=== PATIENT | female | born 1960 | race American Indian/Alaskan Native ===

== ENCOUNTER 2016-09-22 06:23 | Observation (INO) | payer OTHER ==
[2016-09-20 12:47] LABS: Basophils % (Auto) 0.7 % (0.0-1.8); Eosinophils % (Auto) 4.5 % (0.0-4.3); Hematocrit 41.4 % (30.3-42.9); Hemoglobin 13.6 gm/dl (10.1-14.3); Mean Corpuscular HGB Conc 33 % (30-34); Mean Corpuscular Hemoglobin 31 pg (28-32); Mean Corpuscular Volume 93 fl (79-97); Platelet Count 220 K/mm3 (140-440); Red Blood Count 4.46 M/mm3 (3.65-5.03); White Blood Count 5.3 K/mm3 (4.5-11.0)
--- NOTE | 2016-09-20 12:53 | Anesthesia Consultation ---
Anesthesia Consult and Med Hx Date of service: 09/20/16 - Airway Anesthetic Teeth Evaluation: Good ROM Head & Neck: Adequate Mental/Hyoid Distance: Adequate Mallampati Class: Class I Intubation Access Assessment: Good - Pulmonary Exam CTA: Yes - Cardiac Exam Cardiac Exam: RRR - Pre-Operative Health Status ASA Pre-Surgery Classification: ASA2 Proposed Anesthetic Plan: General Nerve Block: TAP block - Gastrointestinal Hx Gastroesophageal Reflux Disease: Yes (well controlled ) - Other Systems Hx Alcohol Use: Yes (occas) Hx Cancer: No
--- NOTE | 2016-09-21 16:26 | History and Physical Report ---
History of Present Illness Date of examination: 09/20/16 Chief complaint: Postmenopausal bleeding History of present illness: This is a 56 year old female who presented to the office for her annual exam complaining of pelvic pain, vaginal bleeding after no periof for ~4years. Her pap results revealed endometrial cells. Her evaluation revealed endometrial polyps and fibroids, she desired conservative surgical therapy and underwent an endometrial ablation that was unremarkable. She experienced persistent irregular bleeding with hormone levels consistent with menopause. She now desires to proceed with hysterectomy with removal of both fallopian tubes and ovaries. Past History : 4 Term Births: 1 Premature Births: 2 Living Children: 2 Spont. Ab: 1 # 1 Comments: x3, one demise [employer] History Operations: Tubal Ligation inguinal hernia repair(R) Colon polypectmy Hysteroscopy w/ Endometrial Ablation (04/18/2016) Hysteroscopic polypectomy (04/18/2016) Hysteroscopic Myomectomy (04/18/2016) Abnormal PAP: positive Relevant Family Hx: Family History Breast Cancer Maternal aunt Family History of Ovarian Cancer PGM No Family History of Colon Cancer Brother Schwanoma Niece Hodgkins lymphoma Infection History HIV Risk Eval: no Hx of STD: None Active Medications (reviewed today): OXYCODONE-ACETAMINOPHEN 5-325 MG TABS (OXYCODONE-ACETAMINOPHEN) 1-2po q6h TRANEXAMIC ACID 650 MG TABS (TRANEXAMIC ACID) 1300 mg(2 tabs) 3 times daily ( 3900 mg daily) for up to 5 days during monthly menstruation XYZAL 5 MG ORAL TABS (LEVOCETIRIZINE DIHYDROCHLORIDE) LINZESS CAPS (LINACLOTIDE CAPS) Current Allergies (reviewed today): No known allergies Past Medical History: Reviewed history from 05/18/2016 and no changes required: seasonal allergies colon polyp benign BRCA2 Variant of Uncertain Significance Detected [facility] Past Surgical History: Reviewed history from 04/18/2016 and no changes required: Tubal Ligation inguinal hernia repair(R) Colon polypectmy Hysteroscopy w/ Endometrial Ablation (04/18/2016) Hysteroscopic polypectomy (04/18/2016) Hysteroscopic Myomectomy (04/18/2016) Family History Summary: Reviewed history Last on 04/13/2016 and no changes required:09/21/2016 Other family member - Has No Family History of Biliary Tract Cancer - Entered On : 02/22/2016 Other family member - Has No Family History of Colon Cancer - Entered On: 2015 Other family member - Has No Family History of DVT/PE on OCP - Entered On: 2015 Other family member - Has No Family History of Kidney/Urinary Tract Cancer - Entered On: 02/22/2016 Other family member - Has No Family History of Pancreatic Cancer - Entered On: Other family member - Has No Family History of Stomach Cancer - Entered On: 02/21 Other family member - Has No Family History of Small Bowel Cancer - Entered On: 02/22/2016 Other family member - Has No Family History of Uterine Cancer - Entered On: 02/21 General Comments - FH: Family History Breast Cancer Maternal aunt Family History of Ovarian Cancer PGM No Family History of Colon Cancer Brother Jeferson Niece Hodgkins lymphoma Social History: Reviewed history from 02/09/2016 and no changes required: Patient is Smoking History: Patient has never smoked. Risk Factors: Smoked Tobacco Use: Never smoker Alcohol use: yes Previous Tobacco Use: Signed On - 08/02/2016 Smoked Tobacco Use: Never smoker Smokeless Tobacco Use: Never Passive smoke exposure: no Drug use: no HIV high-risk behavior: no Previous Alcohol Use: Signed On - 08/02/2016 Alcohol use: yes Type: occ Drinks per day: <1 Exercise: yes Times per week: 3 Seatbelt use: 100 % Colonoscopy History: Date of Last Colonoscopy: 10/13/2015 Mammogram History: Date of Last Mammogram: 03/27/2016 PAP Smear History: Date of Last PAP Smear: 02/09/2016 Review of Systems General Denies fever, chills, sweats, anorexia, fatigue, weakness, malaise, weight loss and sleep disorder. Denies nausea, vomiting, headache, swelling of legs, abdominal pain, vaginal discharge, vaginal bleeding and contractions. Complains of abnormal vaginal bleeding. Denies vaginal discharge, incontinence, dysuria, hematuria, urinary frequency, amenorrhea, menorrhagia, pelvic pain, genital sores, decreased libido , painful periods, painful sex, urinary urgency, hot flashes, vaginal dryness, vaginal itching and vaginal odor. CV Denies chest pains, palpitations, syncope, dyspnea on exertion, orthopnea, PND and peripheral edema. Resp Denies cough, dyspnea at rest, excessive sputum, hemoptysis, wheezing and pleurisy. GI Denies nausea, vomiting, diarrhea, constipation, change in bowel habits, abdominal pain, melena, hematochezia, jaundice, gas/bloating, indigestion/ heartburn, dysphagia and odynophagia. Endo Denies cold intolerance, heat intolerance, polydipsia, polyphagia, polyuria and unusual weight change. Breast Denies left breast lump, right breast lump, nipple discharge, bloody discharge from nipple, breast pain, abnormal mammogram and breast enlargement. MS Denies back pain, joint pain, joint swelling, muscle cramps, muscle weakness, stiffness, arthritis, sciatica, restless legs, leg pain at night and leg pain with exertion. Derm Denies rash, itching, dryness and suspicious lesions. Neuro Denies paralysis, paresthesias, headache, seizures, tremors, vertigo, transient blindness, frequent falls, frequent headaches and difficulty walking. Psych Denies depression, anxiety, irritability and mood swings. Eyes Denies blurring, diplopia, irritation, discharge, vision loss, eye pain and photophobia. ENT Denies earache, ear discharge, tinnitus, decreased hearing, nasal congestion, nosebleeds, sore throat and hoarseness. Allergy Denies urticaria, allergic rash, hay fever and recurrent infections. Heme Denies abnormal bruising, bleeding and enlarged lymph nodes. Physical Exam Appearance: well developed, well nourished, no acute distress Other Exams Lungs: no rales, rhonchi, or wheezes Heart: S1, S2, no murmur, rub, or gallop Abdomen: soft, non-tender, no masses, Skin: no ulcers, xanthomas Lymph: no cervical, axillary, or inguinal adenopathy Extremities: normal alignment, no joint enlargement, crepitus, masses or tenderness; normal tone and strength Genitourinary Exam Vulva: normal, no lesions or discharge Urethral meatus: normal size and location, no lesions or discharge Urethra: no discharge Bladder: no cystocele Vagina: normal appearance, no discharge, lesions. No evidence of cystocele or rectocele. Cervix: normal appearance, no lesions, no discharge Uterus: normal position, midline, mobile Adnexa: no masses or tenderness Impression & Recommendations: Problem # 1: Other specified irregular menstruation (DZC70-I89.5) Consent reviewed and signed . Possible laparoscopy or laparotomy explained to patient. The risks and alternatives for this surgery were reviewed with the patient. She was informed of possible bleeding, infection, injury to bowel, bladder, ureters or other adjacent organs. She was informed she will nopt be able to get once her uterus is removed. The patient was instructed/informed the following: The normal length of hospital stay for this procedure. Nothing to eat or drink after midnight the evening prior to surgery. Clear liquids the day before surgery. Fleets enema the day prior to surgery. Pre-op instruction sheets given. Wound care instructions given. Infection precautions reviewed, patient to call for any signs or symptoms of infection. The usual discomforts associated with this procedure were detailed. Proper use of pain medicines was reviewed. Patient was given ample opportunity to have all her questions answered before signing informed consent. H&P dictated. Medications Added to Medication List This Visit: 1) Oxycodone-acetaminophen 5-325 Mg Tabs (Oxycodone-acetaminophen) .... 1-2po q6h Prescriptions: OXYCODONE-ACETAMINOPHEN 5-325 MG TABS (OXYCODONE-ACETAMINOPHEN) 1-2po q6h #30 x 0 Entered and Authorized by: Thania Gallagher MD Method used: Print then Give to Patient RxID: [id number] Medications and Allergies Allergies Allergy/AdvReac Type Severity Reaction Status Date / Time No Known Allergies Allergy Unverified 04/10/16 10:54 Home Medications Medication Instructions Recorded Confirmed Last Taken Type Cetirizine HCl [ZyrTEC] 10 mg PO PRN PRN 04/10/16 09/15/16 04/11/16 History Ibuprofen [Motrin] 200 mg PO Q6H PRN 04/10/16 09/15/16 2 Weeks Ago History Pantoprazole [Protonix TAB] 20 mg PO QDAY PRN 04/10/16 09/15/16 1 Month Ago History Active Meds: Active Medications Celecoxib (Celebrex) 200 mg PO PREOP NR Stop: 09/22/16 23:59 Famotidine (Pepcid) 20 mg PO PREOP NR Stop: 09/22/16 23:59 Fentanyl (Sublimaze) 100 mcg IV ONCE ONE Stop: 09/22/16 06:01 Gabapentin (Neurontin) 600 mg PO PREOP NR Stop: 09/22/16 23:59 Sodium Chloride (Nacl 0.9% 1000 Ml) 1,000 mls @ 75 mls/hr IV DIRECT AVE Midazolam HCl (Versed) 2 mg IV PREOP NR Stop: 09/22/16 23:59 Exam Vital Signs Temp Pulse Resp BP 98 F 78 14 124/78 09/20/16 12:15 09/20/16 12:15 09/20/16 12:15 09/20/16 12:15 Results - Labs 09/20/16 12:30 Assessment and Plan - Patient Problems (1) Post-menopausal bleeding Status: Acute
[~2016-09-22 06:23] MED LIST: ANCEF/STERILE WATER 2 GM/20 ML 2 GM/20 ML SYRINGE IV NR; NACL 0.9% 1000 ML 1,000 ML IV SCH; NEURONTIN PO NR; PEPCID PO NR; SUBLIMAZE IV ONE; VERSED IV NR
[2016-09-22] MEDS ORDERED: NACL BACTERIOSTATIC INFILTRATI ONE (06:43)
[2016-09-22] MEDS ORDERED: DIPRIVAN 10 MG/ML IV ONE ×2 (07:13→09:39)
[2016-09-22] MEDS ORDERED: SUBLIMAZE ONE (07:13)
[2016-09-22] MEDS ORDERED: XYLOCAINE MPF 2% ONE (07:14)
[2016-09-22] MEDS ORDERED: ZEMURON IV ONE (07:14)
[2016-09-22] MEDS ORDERED: MARCAINE 0.5% 30 ML INFILTRATI ONE (07:19)
[2016-09-22] MEDS ORDERED: NEOSPORIN GU IR ONE ×2 (07:20→09:12)
--- NOTE | 2016-09-22 07:31 | Anesthesia Day of Surgery ---
Anesthesia Day of Surgery - Day of Surgery Patient Examined: Yes Patient H&P Reviewed: Yes Patient is NPO: Yes
[2016-09-22] MEDS ORDERED: MARCAINE-EPI/PF 0.25%-1:200,000 INFILTRATI ONE (07:44)
[2016-09-22] MEDS ORDERED: MARCAINE-EPI 0.25%-1:200,000 INFILTRATI ONE (07:44)
[2016-09-22] MEDS ORDERED: DECADRON ONE ×2 (07:44→08:38)
[2016-09-22] MEDS ORDERED: XYLOCAINE 1% 20 mL ONE (07:44)
[2016-09-22] MEDS ORDERED: CLONIDINE 1,000 MCG/10 ML VIAL EP ONE (07:44)
[2016-09-22 07:50] LABS: BUN/Creatinine Ratio 12.22; Blood Urea Nitrogen 11 mg/dL (7-17); Calcium 9.2 mg/dL (8.4-10.2); Carbon Dioxide 28 mmol/L (22-30); Chloride 97.7 mmol/L (98-107); Glucose 103 mg/dL (65-100); Sodium 137 mmol/L (137-145)
[2016-09-22 08:21] LABS: Anion Gap 17 mmol/L
[2016-09-22 08:23] LABS: Potassium 5.3 mmol/L (3.6-5.0)
[2016-09-22] MEDS ORDERED: CALCIUM CHLORIDE IV ONE ×2 (08:43→09:14)
[2016-09-22] MEDS ORDERED: THROMBIN (BOVINE) TP ONE ×2 (08:44→09:16)
[2016-09-22] MEDS ORDERED: DILAUDID ONE (08:54)
[2016-09-22] MEDS ORDERED: TORADOL ONE (08:55)
[2016-09-22] MEDS ORDERED: NEOSTIGMINE ONE (08:55)
[2016-09-22] MEDS ORDERED: ZOFRAN ONE (08:55)
[2016-09-22] MEDS ORDERED: ROBINUL ONE ×2 (08:55)
[2016-09-22] MEDS ORDERED: NACL 0.9% IR ONE (09:13)
[2016-09-22] MEDS ORDERED: NACL 0.9% 1000 ML 1,000 ML ONE ×4 (09:26→12:51)
[2016-09-22] MEDS ORDERED: NACL 0.9% 100 ML ONE (09:26)
[2016-09-22] MEDS ORDERED: NEO SYNEPHRINE ONE (09:26)
--- NOTE | 2016-09-22 10:50 | Operative Report ---
Operative Report Operative Report: Date of procedure: 09/22/2016 Pre-operative diagnosis: 1. Postmenopausal bleeding unresponsive to conservative surgical and medical therapy 2. Uterine fibroids Post-operative diagnosis: 1. Postmenopausal bleeding unresponsive to conservative surgical and medical therapy 2. Uterine fibroids Procedure name(s): 1. Robotic-assisted total hysterectomy 2. Bilateral oophorectomy 3. Right salpingectomy Surgeon: Thania Gallagher MD Stars Specialist: Eli Peña Anesthesia: General anesthesia Findings: Exam under anesthesia was unremarkable. Uterus was sounded to 10 cm. Grossly normal bilateral ovaries. Absent left fallopian tube. Grossly normal remaining segment of right fallopian tube. No evidence of inflammatory changes. Anesthesiologist: Dr. Amy Florian Complications: None EBL: 50 mL Procedure: After risks, benefits complications, consequences, and alternatives for this procedure were discussed the patient, and she voiced understanding and desired to proceed, she was taken to the OR where general anesthesia was induced. She was placed in the dorsolithotomy position, exam under anesthesia was unremarkable. She was then prepped and draped in usual sterile fashion. Timeout was performed. Stack catheter was introduced into the bladder. A bivalve speculum was introduced into the vagina, and the anterior lip of the cervix was grasped with a single-tooth tenaculum. The uterus was sounded to approximately 10 cm. The cervix was progressively dilated to allow the large the V care uterine manipulator. The tenaculum and speculum were removed and the Vcare manipulator was secured in place. A solution saturated laparotomy sponge was placed in the vagina. Sterile gloves were placed and attention was turned to the abdomen. A 12 mm Optiview trocar with scope and camera attached was placed through a midline vertical incision was approximately 10 cm superior to the elevated fundus of the uterus. The trocar with camera attached was placed under direct visualization. No bowel, bladder, ureteral or major blood vessel injury was noted. The abdomen was insufflated. Patient was placed in steep Trendelenburg position. Additional trocars were placed in the following positions: 8 mm robotic trocars were placed in the bilateral midclavicular lower abdominal region approximately 10 cm lateral and 15 below the midline incision. An additional 5 mm trocar was placed in the right lateral lower abdominal region approximately 2 cm superior to the anterior superior iliac crest. Using the 5 mm operative scope placed through the lateral trocar for visualization, the midline trocar was removed and a 0 Vicryl was placed through the fascia using the Antwon-Romina fascia closure device. The trocar was reintroduced under direct visualization. And the suture was secured in place. Once the trocars were in the proper position the robot was engaged. The instruments were introduced into the 8 mm trochars. Attention was turned to console. The segment of right fallopian tube was released and removed through the 5 mm trocar. The course of the ureters were visualized and the right ovary was elevated and the infundibular pelvic ligament was clamped cauterized and incised. The round ligament on the right was then clamped cauterized and incised. The uterus steel elevated attention was turned to the left adnexa. The utero-ovarian ligament was clamped, cauterized and incised using 30 W of energy. Then the round ligament was clamped, cauterized and incised. The anterior leaf of the broad ligament was elevated with both blunt and sharp dissection the bladder flap was created. Once the bladder appeared to be away from the operative field attention was turned the posterior leaf of the broad ligaments. The ligaments were elevated and dissected away from the uterine vessels. Once the outline of the Vcare uterine manipulator was visualized, the uterine vessels were clamped and cauterized bilaterally. Once blanching of the uterus was noted, and the posterior outline of the Vcare manipulator was visualized, and confirmed, colpotomy was performed down to the cup of the manipulator. This incision was extended in a circumferential manner to 9:00 and 3:00 positions. The uterine vessels were clamped, cauterized and incised. The colpotomy was completed. The uterus with the right ovary were then delivered through the vagina. Attention was turned to the left adnexa. The ovary was elevated and the course of the ureter was confirmed and the infundibular pelvic ligament was clamped cauterized and incised. The left ovary was then removed through the vagina. The pelvis was irrigated with solution warm saline. Once hemostasis was noted the vagina was reapproximated using the V LOC 180 suture. The pelvis was again irrigated with warm normal saline. Once hemostasis was noted, platelet rich plasma was applied for further hemostasis followed by platelet poor plasma to prevent adhesions. The ureters were noted to be peristaltic and away from the operative field. Attention was turned to the left cecal area. No evidence of inflammation was noted. The abdomen and pelvis were again visualized, no bowel, bladder, ureteral or major vascular injury was noted, hemostasis was also noted. The laparoscope was removed and the fascia of the midline incision was ligated. Then the abdomen was desufflated. The trocars were removed. The skin incisions were approximated using 4-0 Vicryl in a subcuticular manner. The incisions were then sealed with Octylseal.The laparotomy sponge was removed from the vagina, and hemostasis was noted. The patient tolerated the procedure well and was taken to recovery room in stable condition. Counts were correct x3. Clear yellow urine was noted draining into the Stack catheter was noted.
[2016-09-22] MEDS ORDERED: DILAUDID IV PRN (11:00)
--- NOTE | 2016-09-22 11:26 | Admit Criteria Form ---
Admission Criteria Documentation: AMBULATORY SURGERY EXCEPTION CRITERIA Ambulatory Surgery Exception Criteria ( Place 'X' for any and all applicable criteria): Surgery or procedure performed on ambulatory basis may require inpatient stay for[A] ANY ONE of the following(1)(2)(3)(4)(5)(6)(7)(8)(9): [X] I. A preoperative situation, condition, or finding that warrants inpatient stay as indicated by ANY ONE of the following: [X] a) Inpatient care needed because of severity of a disease or condition rather than the surgery (eg, severe cardiac or respiratory disease, severe infection) (15) (16 ) (17) (18) [] b) Emergent procedure (eg, angioplasty for acute ischemia)(19) [] c) Complex surgical approach or situation as indicated by ANY ONE of the following(3): [] i) Open approach needed instead of usual endoscopic, transcatheter, or other less invasive procedure [] ii) Difficult approach because of previous operation [] iii) Airway monitoring required after open neck procedures(20)(21) [] iv) Large mass requiring unusually extensive dissection [] v) Additional complicating feature requiring inpatient care (eg, drain management)(22(23): [] d) Major surgery in a pt with high anesthetic risk as indicated by ANY ONE of the following (2)(3)(5)(7)(8): [] i) ASA risk class III or higher (severe systemic disease impairing function) [D] [] ii) Advanced age (eg, older than 85 years)(14)(24) [] iii) Symptomatic heart failure(25) [] iv) Symptomatic asthma or COPD(8)(21) [] v) Morbid obesity with hemodynamic or respiratory problems(20)( 21)(26)(27) [] vi) Obstructive sleep apnea(20)(21) [] vii) Former premature infants who are younger than 60 weeks [] viii) High risk for severe postoperative abnormalities (eg, severe postoperative hypocalcemia after parathyroidectomy for severe hyperparathyroidism)(27)( 28) [] ix) Unstable angina(25) [] e) Drug-related risk requiring inpatient stay as indicated by ANY ONE of the following(5)(10)(14)(32)(33) [] i) Procedure requires discontinuing drugs or other therapy (eg , antiarrhythmic medication, antiseizure medication), which necessitates inpatient observation or treatment.(18)(31) [] ii) Major surgery and high risk drug use as indicated by ANY ONE of the following: [] 1) Active abuse of cocaine or similar drug [] 2) Monoamine oxidase inhibitor use [] 3) Other drug identified as posing risk [] f) Inadequate outpatient care situation as indicated by ANY ONE of the following(5)(10)(14)(32)(33) [] i) Patient lives remote from medical facility and procedure has urgent complication potential, and temporary nearby residence cannot be arranged [] ii) Patient will have postprocedure incapacitation and inadequate assistance at home, or alternative level of care cannot be arranged. [] iii) Patient will have long general anesthesia or procedure side effect resolution time, and competent person to stay with patient on first postoperative night at home or alternative level of care cannot be arranged. []iv) Other inadequate outpatient situation that cannot be handled by other means [] II. A perioperative event, condition, or finding that warrants inpatient stay as indicated by ANY ONE of the following (1)(2)(3): [] a) Inadequate physiologic recovery: cardiovascular, respiratory, or hemodynamic status not normal or near preoperative baseline(18) [] b) Hemodynamic instability [] c) Patient not alert with near normal or baseline mental status [] d) Temperature not normal or as expected and not appropriate for outpatient treatment of condition [] e) Ambulatory or appropriate activity level status not yet achieved post procedure [E](34)(35)(36) [] f) Operative site not appropriate (eg, unexpected or excessive drainage or bleeding) [] g) Postoperative effects not resolved or adequately managed (eg, significant pain or vomiting not appropriate for outpatient or next level of care)(10)(12) [] h) Complicating features requiring inpatient care as indicated by ANY ONE of the following(37): [] i) Severe complications of procedure (eg, bowel injury, airway compromise, vascular injury,severe hemorrhage) [] ii) Extensive (eg, dissection far beyond usual scope of procedure ) or prolonged (eg, 120 minutes beyond usual) surgery needed requiring inpatient postoperative care [] iii) Conversion to an open or complex procedure that requires inpatient care (eg, open vs laparoscopic cholecystectomy, abdominal vs vaginal hysterectomy)(38) [] iv) Comorbid condition or test result identified during or post procedure that requires inpatient care (7) [] v) Malignant hyperthermia(30) [] vi) Other complicating feature requiring inpatient care(22)(23) Inpatient stay may be needed until ALL of the following are present (1)(2)(3)(4) (5)(6)(10)(14)(33)(40): []a) Physiologic recovery: cardiovascular, respiratory, and hemodynamic status normal or near preoperative baseline []b) Hemodynamic stability []c) Patient alert, with near normal or baseline mental status []d) Temperature appropriate: patient afebrile or temperature appropriate for outpt treatment of condition []e) Activity level appropriate: ambulatory or appropriate activity level post procedure []f) Operative site appropriate as indicated by ALL of the following: []i) Site dry or with expected drainage []ii) Any blood noted is as expected for procedure. []g) Postoperative effects resolved or managed as indicated by ALL of the following: []i) Pain management appropriate for outpatient (or next level of) care(10) []ii) Minimal nausea and vomiting: if present, successfully treated with oral medication(12) []iii) Headache, dizziness, or drowsiness (if present) are mild. []h) Voiding status acceptable as indicated by ANY ONE of the following: []i) Voiding spontaneously []ii) No voiding but instructions given for follow-up in 6 to 8 hours []iii) Urinary catheter in place, and instructions given for follow-up []i) Complicating features requiring inpatient care manageable at a lower level of care(37) []j) Comorbid conditions manageable at a lower level of care(37) The original [employer] content created by [employer] has been revised. The portions of the content which have been revised are identified through the use of italic text or in bold, and [employer] has neither reviewed nor approved the modified material. All other unmodified content is copyright [employer]. Please see references footnoted in the original [employer] edition 2016 Admission Criteria Met: Yes
[2016-09-22] MEDS ORDERED: MORPHINE IV PRN ×2 (14:11)
[2016-09-22] MEDS ORDERED: REGLAN PO PRN (14:11)
[2016-09-22] MEDS ORDERED: NARCAN 0.4 MG/1 ML IV PRN (14:11)
[2016-09-22] MEDS ORDERED: TYLENOL PR PRN (14:11)
[2016-09-22] MEDS ORDERED: TYLENOL PO PRN (14:11)
[2016-09-22] MEDS ORDERED: ZOFRAN IV PRN (14:11)
[2016-09-22] MEDS ORDERED: ZOFRAN PO PRN (14:11)
[2016-09-22] MEDS ORDERED: REGLAN IV PRN (14:11)
[2016-09-22] MEDS ORDERED: LACTATED RINGERS 1,000 ML IV SCH (15:00)
[2016-09-22] MEDS: ANCEF/NS 1 GM/50 ML 1 GM/50 ML BAG IV SCH ×2 (15:26→22:00)
[2016-09-22] MEDS: TORADOL IV SCH ×2 (15:27→21:01)
--- NOTE | 2016-09-22 20:37 | Progress Note ---
Assessment and Plan - Patient Problems (1) History of robot-assisted laparoscopic hysterectomy Current Visit: Yes Status: Acute Plan to address problem: Doing well Operative findings and procedure explained Plan of care discussed Postop wound care and precautions given Questions answered she voiced understanding and agrees with plan of care (2) S/P bilateral oophorectomy Current Visit: Yes Status: Acute (3) Hx of unilateral salpingectomy Current Visit: Yes Status: Acute (4) Post-menopausal bleeding Current Visit: Yes Status: Resolved Subjective - Subjective Date of service: 09/22/16 Principal diagnosis: DOS:RATH, (B) OOPHORECTOMY, (R) SALPINGECTOMY Interval history: Patient resting in bed, no complaints Patient reports: voiding normally, pain well controlled Objective - Vital Signs Latest vital signs: Vital Signs Temp Pulse Pulse Resp BP BP Pulse Ox 09/22/16 16:40 97 F L 60 20 104/54 09/22/16 13:50 98.2 F 71 18 111/70 09/22/16 13:15 97.2 F L 69 14 100/59 100 09/22/16 13:00 64 14 105/60 100 09/22/16 12:45 66 14 102/59 100 09/22/16 12:30 64 14 95/52 100 09/22/16 12:15 63 12 101/59 100 09/22/16 12:00 65 12 100/60 100 09/22/16 11:45 65 12 96/54 100 09/22/16 11:30 96.2 F L 66 12 100/55 100 09/22/16 11:15 61 12 101/60 100 09/22/16 11:00 58 L 12 108/58 100 09/22/16 10:55 59 L 12 103/63 100 09/22/16 10:45 62 13 101/61 100 09/22/16 10:40 64 14 98/57 100 09/22/16 10:35 66 14 97/59 100 09/22/16 10:30 67 14 110/66 100 09/22/16 10:25 97.1 F L 73 15 112/65 100 09/22/16 08:05 72 16 114/63 99 09/22/16 08:00 98.4 F 66 20 141/78 99 09/22/16 07:55 72 18 128/76 97 09/22/16 07:50 77 17 125/76 99 09/22/16 07:45 81 12 107/51 100 09/22/16 06:35 98.4 F 66 20 141/78 99 Intake and Output 09/22/16 09/22/16 09/22/16 06:59 14:59 22:59 Intake Total 3650 150 Output Total 500 800 Balance 3150 -650 Intake: IV 3650 Oral 150 Output: Urine 500 800 Indwelling Catheter 800 Other: Total, Intake Amount 90 Total, Output Amount 800 Voiding Method Indwelling Catheter Indwelling Catheter - Exam Breasts: Present: deferred Cardiovascular: Present: Regular rate Lungs: Present: Clear to auscultation, Normal air movement Abdomen: Present: normal appearance, soft Incision: Present: normal, dry, intact - Labs Labs: Abnormal lab results 09/22/16 Range/Units 07:17 Potassium 5.3 H (3.6-5.0) mmol/L Chloride 97.7 L (98-107) mmol/L Glucose 103 H (65-100) mg/dL
[2016-09-22] MEDS: PEPCID IV SCH (22:01)
[2016-09-23] MEDS: PERCOCET 5/325 PO PRN ×2 (00:33→10:14)
[2016-09-23 03:19] LABS: Hematocrit 34.6 % (30.3-42.9); Hemoglobin 11.5 gm/dl (10.1-14.3)
[2016-09-23] MEDS: TORADOL IV SCH ×2 (03:47→12:07)
[2016-09-23] MEDS: PEPCID IV SCH (10:04)
--- NOTE | 2016-09-23 10:51 | Progress Note ---
Subjective Date of service: 09/23/16 Principal diagnosis: DOS:RATH, (B) OOPHORECTOMY, (R) SALPINGECTOMY Interval history: Patient is very happy with her level of pain control. She reports minimal incisional pain with mild deep soreness. Objective - Constitutional Vitals: Vital Signs - 12hr 09/22/16 09/23/16 09/23/16 23:00 04:15 08:01 Temperature 97.8 F 98.3 F 97.7 F Pulse Rate [ 58 L 50 L Right Brachial] Pulse Rate [ 58 L Right Radial] Respiratory 20 20 18 Rate Blood Pressure 108/58 104/55 106/58 [Right Arm] - Labs CBC & Chem 7: 09/23/16 02:53 09/22/16 07:17
[2016-09-23 11:47] VITALS: BP 100/54
[2016-09-23] MEDS ORDERED: TORADOL ONE (11:59)
--- NOTE | 2016-09-23 13:36 | Discharge Summary ---
Providers - Providers Date of Admission: 09/22/16 10:29 Date of discharge: 09/23/16 Attending physician: KIP SIERRA Primary care physician: ANGLE BETTENCOURT Hospitalization Reason for admission: other (RATH) Procedure: other (RATH, salpingectomy, IRA) Procedure details: see op note Hospital course: Pt admitted for above stated procedure. Pt has not had nay post op complications. Pt desires to go home today. Condition at discharge: Good Disposition: DISCHARGED TO HOME OR SELFCARE - Discharge Diagnoses (1) History of robot-assisted laparoscopic hysterectomy Status: Acute (2) S/P bilateral oophorectomy Status: Acute (3) Post-menopausal bleeding Status: Resolved Plan - Provider Discharge Summary Activity: routine, no sex for 6 weeks, no heavy lifting 4 weeks, no strenuous exercise Diet: routine Instructions: routine Additional instructions: [] Smoking cessation referral if applicable(refer to patient education folder for contact #) [] Refer to [facility] Booklet Call your doctor immediately for: * Fever > 100.5 * Heavy vaginal bleeding ( >1 pad per hour) * Severe persistent headache * Shortness of breath * Reddened, hot, painful area to leg or breast * Drainage or odor from incision. * Keep incision clean and dry at all times and follow doctor's instructions regarding bathing/showering - Follow up plan Follow up: ANGLE BETTENCOURT MD [Primary Care Provider] - 7 Days Forms: [facility] Discharge Summary, Discharge Signature Page
== END 2016-09-23 13:45 | disposition home or self-care (01) ==
LOC: OR 06:23 → OB 10:29
PROVIDERS: ADMIT Obstetrics & Gynecology; ATTEND Obstetrics & Gynecology
DX: N95.0 Postmenopausal bleeding (principal); D25.9 Leiomyoma of uterus, unspecified; K21.9 Gastro-esophageal reflux disease without esophagitis; Z90.722 Acquired absence of ovaries, bilateral; Z90.710 Acquired absence of both cervix and uterus; Z98.890 Other specified postprocedural states
CPT/HCPCS: 36415; 58571; 64450; 80048; 81025; 85014; 85018; 85025; 86850; 86900; 86901; 88305; 88307; 96365; 96375; 96376; A4217; G0378; J0690; J0735; J1100; J1170; J1885; J2250; J2370; J2405; J2704; J2710; J3010; J7030; J7120; S2900; Q0162